=== PATIENT | male | born 1990 | race African-American/Black ===

== ENCOUNTER 2017-07-27 05:11 | Emergency (ER) | payer SELFPAY ==
[~2017-07-27] VITALS: Ht 203.2 cm; Wt 174.6 kg
[2017-07-27] MEDS ORDERED: LORAZEPAM 2MG/ML CPJ IV STA (05:22)
[2017-07-27] MEDS ORDERED: DIPHENHYDRAMINE 50MG/ML VIAL IM STA (05:22)
[2017-07-27] MEDS ORDERED: OLANZAPINE 10 MG/VIAL IM STA (05:22)
[2017-07-27] MEDS ORDERED: LORAZEPAM 2MG/ML CPJ ONE (05:28)
[2017-07-27] MEDS ORDERED: DIPHENHYDRAMINE 50MG/ML VIAL ONE (05:29)
[2017-07-27] MEDS ORDERED: LORAZEPAM 2MG/ML CPJ IM ONE ×2 (05:30→06:30)
[2017-07-27] MEDS ORDERED: HALOPERIDOL LACTATE 5MG/ML VIAL IM ONE (05:53)
[2017-07-27 06:37] LABS: CLARITY URINE CLOUDY (CLEAR); COLOR URINE YELLOW (YELLOW); GLUCOSE URINE NEGATIVE (NEGATIVE); KETONES URINE TRACE (NEGATIVE); LEUKOCYTE ESTERASE URINE NEGATIVE (NEGATIVE); NITRITE URINE NEGATIVE (NEGATIVE); OCCULT BLOOD URINE 2+ (NEGATIVE); PROTEIN URINE 2+ (NEGATIVE); SPECIFIC GRAVITY URINE 1.019 (1.005-1.030); UROBILINOGEN URINE 0.2 E.U./dL (0.2-1.0)
[2017-07-27 07:06] LABS: CHLORIDE 105 mEq/L (98-107)
[2017-07-27 07:07] LABS: BASOPHILS % 0.3 % (0.0-2.0); EOSINOPHILS % 0.5 % (0.0-5.0); HEMATOCRIT. 51.5 % (42.0-52.0); HEMOGLOBIN. 17.4 g/dL (14.0-18.0); LYMPHOCYTES % 16.4 % (20.0-50.0); MEAN CORPUSCULAR HEMOGLOBIN 31.3 pg (28.0-32.0); MEAN CORPUSCULAR VOLUME 92.7 fL (80.0-94.0); MEAN PLATELET VOLUME 8.4 fl (7.4-10.4); MONOCYTES % 9.4 % (2.0-8.0); NEUTROPHILS % 73.4 % (40.0-76.0); PLATELET 262 x1000/uL (130-400); RED BLOOD CELL COUNT 5.56 mill/uL (4.7-6.1); RED CELL DISTRIBUTION WIDTH 13.8 % (11.6-14.6)
[2017-07-27 07:09] LABS: *AMPHETAMINES SCREEN URINE NEGATIVE (NEGATIVE); *BARBITURATES SCREEN URINE NEGATIVE (NEGATIVE); *BENZODIAZEPINES SCREEN URINE PRESUMTIVE POSITIVE (NEGATIVE); *COCAINE SCREEN URINE NEGATIVE (NEGATIVE); CANNABINOID URINE SCREEN PRESUMTIVE POSITIVE (NEGATIVE); METHADONE URINE SCREEN NEGATIVE (NEGATIVE); OPIATES URINE SCREEN NEGATIVE (NEGATIVE); PHENCYCLIDINE URINE SCREEN NEGATIVE (NEGATIVE)
[2017-07-27 07:15] LABS: CARBON DIOXIDE 26 mEq/L (21-32); ETHANOL BLOOD 145 mg/dL
[2017-07-27 10:24] VITALS: BP 154/79
== END 2017-07-27 11:07 | disposition home or self-care (01) ==
LOC: ER 05:11
DX: T51.0X1A Toxic effect of ethanol, accidental (unintentional), initial encounter (principal); Y90.6 Blood alcohol level of 120-199 mg/100 ml
CPT/HCPCS: 36415; 80053; 80305; 80307; 80329; 81001; 85025; 93005; 96372; 99285; G0482; J1200; J2060; J3490; Z7610; J1630